=== PATIENT | male | born 1990 | race Caucasian/White ===

== ENCOUNTER 2018-01-04 15:38 | Emergency (ER) | payer SELFPAY ==
[~2018-01-04] VITALS: Ht 185.4 cm; Wt 120.0 kg
[2018-01-04] MEDS ORDERED: TORADOL PO (17:57)
[2018-01-04] MEDS ORDERED: FLEXERIL PO (17:57)
[2018-01-04] MEDS ORDERED: ULTRAM50 M1 PO (17:57)
[2018-01-04 18:04] VITALS: BP 172/102
== END 2018-01-04 18:12 | disposition home or self-care (01) | DRG 563 ==
LOC: ED 15:38
DX: S39.012A Strain of muscle, fascia and tendon of lower back, initial encounter (principal); X50.0XXA Overexertion from strenuous movement or load, initial encounter; Y93.89 Activity, other specified; Y92.009 Unspecified place in unspecified non-institutional (private) residence as the place of occurrence of the external cause